=== PATIENT | male | born 1950 | race Caucasian/White ===

== ENCOUNTER → 2019-11-19 | Outpatient (CLI) | payer MEDICARE, OTHER ==
[~2019-11-19] MED LIST: MEDICAL MARIJUANA; OMEP20ER PO
== END | disposition home or self-care (01) ==
LOC: LAB 10:55 → LAB SHORT 10:55
DX: L08.0 Pyoderma (principal)
CPT/HCPCS: 87070; 87077; 87186; 87205

== ENCOUNTER → 2020-01-07 | Outpatient (CLI) | payer MEDICARE, OTHER | LOC: PLD 07:49 → LAB SHORT 07:49 | DX: L30.8 Other specified dermatitis (principal); L08.9 Local infection of the skin and subcutaneous tissue, unspecified | CPT/HCPCS: 88305; 88312 ==

== ENCOUNTER → 2020-02-11 | Outpatient (CLI) | payer MEDICARE, OTHER | END | disposition home or self-care (01) | LOC: LAB SHORT 15:52 → PLD 15:52 | DX: L30.8 Other specified dermatitis (principal) | CPT/HCPCS: 88305; 88312 ==

== ENCOUNTER 2020-07-21 07:34 | Day surgery (SDC) | payer MEDICARE, OTHER ==
[~2020-07-21 07:34] MED LIST changes: +FAMO20 PO; +FOLI1; +METTREX2.5 PO
--- NOTE | 2020-07-21 07:58 | NUR ---
07/21/20 0758 Sekou Rosenbaum History, Chart, Medications and Allergies reviewed before start of procedure. MONITOR INTACT WITH CONTINUOUS PULSE OXIMETRY AND INTERMITTENT BP. 3-LEAD EKG REVIEWED WITH PHYSICIAN PRIOR TO START OF PROCEDURE. O2 VIA N/C INTACT THROUGHOUT SEDATION/PROCEDURE. PATIENT DETERMINED TO BE ASA APPROPRIATE FOR PROPOFOL SEDATION PRIOR TO START OF PROCEDURE BY DR. PÉREZ.
--- NOTE | 2020-07-21 08:59 | NUR ---
Patient up to Ambulate independently. Gait steady. Discharge instructions reviewed with patient. Patient verbalizes understanding. Copy given to patient to take home. Patient States Post-Procedure ride home has been arranged. Discharged via wheelchair to private car for ride home. ALL BELONINGS RETURNED TO PATIENT. PLACED PICS, PAMPHLETS IN PACKAGE. PROVIDED EDUCATION ON HIGH FIBER DIET.
== END 2020-07-21 09:05 | disposition home or self-care (01) ==
LOC: ORSCMMR 07:34 → ORD 08:00 → ORSCMMR 09:05
PROVIDERS: Internal Medicine Gastroenterology
PROC: 0DBN8ZX Excision of Sigmoid Colon, Via Natural or Artificial Opening Endoscopic, Diagnostic (ICD-10-PCS; principal; 2020-07-21 08:00)
PROC: 0DBK8ZX Excision of Ascending Colon, Via Natural or Artificial Opening Endoscopic, Diagnostic (ICD-10-PCS; principal; 2020-07-21 08:00)
PROC: 0DBM8ZX Excision of Descending Colon, Via Natural or Artificial Opening Endoscopic, Diagnostic (ICD-10-PCS; principal; 2020-07-21 08:00)
PROC: 0DBL8ZX Excision of Transverse Colon, Via Natural or Artificial Opening Endoscopic, Diagnostic (ICD-10-PCS; principal; 2020-07-21 08:00)
DX: Z12.11 Encounter for screening for malignant neoplasm of colon (principal); Z86.010 Personal history of colon polyps; K63.5 Polyp of colon; D12.2 Benign neoplasm of ascending colon; D12.3 Benign neoplasm of transverse colon; D12.4 Benign neoplasm of descending colon; K57.30 Diverticulosis of large intestine without perforation or abscess without bleeding; K21.9 Gastro-esophageal reflux disease without esophagitis; F17.210 Nicotine dependence, cigarettes, uncomplicated; Z79.899 Other long term (current) drug therapy
CPT/HCPCS: 88305; J2704; J7120

== ENCOUNTER → 2022-01-10 | Outpatient (CLI) | payer MEDICARE | END | disposition home or self-care (01) | LOC: PLD 11:18 → LAB SHORT 11:18 | DX: L98.9 Disorder of the skin and subcutaneous tissue, unspecified (principal) | CPT/HCPCS: 88305 ==

== ENCOUNTER → 2022-05-09 | Outpatient (CLI) | payer MEDICARE | END | disposition home or self-care (01) | LOC: LAB SHORT 14:35 → LAB 14:35 → PLD 14:35 | DX: L98.8 Other specified disorders of the skin and subcutaneous tissue (principal); R23.4 Changes in skin texture; R60.0 Localized edema | CPT/HCPCS: 88305; 88312 ==

== ENCOUNTER 2022-07-06 07:40 | Day surgery (SDC) | payer MEDICARE ==
[2022-07-06] VITALS (15 sets, daily range): BP systolic 95–155; BP diastolic 67–104
[~2022-07-06] VITALS: Ht 177.8 cm; Wt 77.0 kg
[~2022-07-06 07:40] MED LIST changes: +PANT40 PO
[2022-07-06] MEDS ORDERED: ACET500 (08:38)
--- NOTE | 2022-07-06 08:42 | NUR ---
Ambulatory in Day Surgery History, Chart, Medications and Allergies reviewed before start of procedure. Pre-Op teaching done. Pt verbalizes understanding. Patient States Post-Procedure ride home has been arranged.
--- NOTE | 2022-07-06 09:09 | NUR ---
07/06/22 0909 Cristina Casanova HISTORY, CHART, MEDICATIONS AND ALLERGIES REVIEWED BEFORE START OF PROCEDURE. PATIENT CONFIRMS NPO STATUS AND AGREES WITH SCHEDULED PROCEDURE. 3-LEAD EKG REVIEWED WITH PHYSICIAN PRIOR TO START OF PROCEDURE. MONITOR INTACT WITH CONTINUOUS PULSE OXIMETRY,CAPNOGRAPHY, 3-LEAD EKG, INTERMITTENT BP. SUPPLEMENTAL O2 TO BE TITRATED THROUGHOUT PROCEDURE TO MAINTAIN O2 SATURATION ABOVE 90%. PATIENT DETERMINED TO BE ASA APPROPRIATE FOR PROPOFOL SEDATION PRIOR TO START OF PROCEDURE BY DR. PÉREZ.
--- NOTE | 2022-07-06 10:09 | NUR ---
DISCHARGE NOTE PT A&OX4, VSS, BREATHING RA, NO COMPLAINTS OF PAIN OR NAUSEA. ABDOMEN SOFT. TOLERATING PO FLUIDS. Discharge instructions reviewed with patient. Patient verbalizes understanding. Copy given to patient to take home. Discharged via wheelchair to private car for ride home. PT DISCHARGED WITH ALL BELONGINGS.
== END 2022-07-06 10:15 | disposition home or self-care (01) ==
LOC: ORSCMMR 07:40 → ORD 08:30 → ORSCMMR 08:30
PROVIDERS: Internal Medicine Gastroenterology
PROC: 0DB58ZX Excision of Esophagus, Via Natural or Artificial Opening Endoscopic, Diagnostic (ICD-10-PCS; principal; 2022-07-06 08:30)
PROC: 0DB98ZX Excision of Duodenum, Via Natural or Artificial Opening Endoscopic, Diagnostic (ICD-10-PCS; principal; 2022-07-06 08:30)
PROC: 0DB48ZX Excision of Esophagogastric Junction, Via Natural or Artificial Opening Endoscopic, Diagnostic (ICD-10-PCS; principal; 2022-07-06 08:30)
PROC: 0DB68ZX Excision of Stomach, Via Natural or Artificial Opening Endoscopic, Diagnostic (ICD-10-PCS; principal; 2022-07-06 08:30)
DX: K21.9 Gastro-esophageal reflux disease without esophagitis (principal); R21 Rash and other nonspecific skin eruption; B96.81 Helicobacter pylori [H. pylori] as the cause of diseases classified elsewhere; Z86.010 Personal history of colon polyps; F17.210 Nicotine dependence, cigarettes, uncomplicated; Z79.899 Other long term (current) drug therapy
CPT/HCPCS: 88305; 88342; A9270; J2704; J7120

== ENCOUNTER 2023-03-09 11:24 | Day surgery (SDC) | payer MEDICARE ==
[~2023-03-09] VITALS: Ht 177.8 cm; Wt 76.5 kg
[~2023-03-09 11:24] MED LIST changes: +ACET500; +MOBIC15 MG PO; +MOME.1TO TOP; +UREA226.8 GM TOP; +XALATAN2.5 ML
--- NOTE | 2023-03-09 13:04 | NUR ---
03/09/23 1304 Clementine Do T:[id number] P:[id number]
[2023-03-09 13:36] VITALS: BP 125/76
--- NOTE | 2023-03-09 13:59 | NUR ---
03/09/23 1359 Donovan Fofana IV REMOVED INTACT. SITE WNL.
== END 2023-03-09 13:55 | disposition home or self-care (01) ==
LOC: ORSCSDS 11:24
PROVIDERS: Ophthalmology
PROC: 08933ZZ Drainage of Left Anterior Chamber, Percutaneous Approach (ICD-10-PCS; principal; 2023-03-09 12:30)
PROC: 08RK3JZ Replacement of Left Lens with Synthetic Substitute, Percutaneous Approach (ICD-10-PCS; principal; 2023-03-09 12:30)
DX: H25.12 Age-related nuclear cataract, left eye (principal); J44.9 Chronic obstructive pulmonary disease, unspecified; K21.9 Gastro-esophageal reflux disease without esophagitis; F17.210 Nicotine dependence, cigarettes, uncomplicated; G35 Multiple sclerosis; H40.1132 Primary open-angle glaucoma, bilateral, moderate stage; Z79.899 Other long term (current) drug therapy
CPT/HCPCS: 82947; J2250; J3010; J3301; J7040; V2632

== ENCOUNTER 2023-03-16 11:13 | Day surgery (SDC) | payer MEDICARE ==
[~2023-03-16] VITALS: Ht 177.8 cm; Wt 75.0 kg
[2023-03-16] MEDS ORDERED: TAMS.4ER (12:23)
[2023-03-16] MEDS ORDERED: [UNRECOGNIZED DRUG - OTHER] (12:24)
[2023-03-16 13:36] VITALS: BP 105/68
--- NOTE | 2023-03-16 14:02 | NUR ---
03/16/23 3372 JANNET CARBAJAL PT REQUESTED A ROLL OF PAPER TAPE. HE STATES THAT HE HAD A REACTION TO THE TAPE LAST TIME. HE STATED THAT HE ONLY HAD IT IN ONE SPOT- THEN HE RUBBED IT. I DO NOT BRUISING ON THE RIGHT SIDE OF HIS NOSE. PAPER TAPE GIVEN TO HIM HE REQUESTED.
== END 2023-03-16 14:05 | disposition home or self-care (01) ==
LOC: ORSCSDS 11:13
PROVIDERS: Ophthalmology
PROC: 08923ZZ Drainage of Right Anterior Chamber, Percutaneous Approach (ICD-10-PCS; principal; 2023-03-16 12:30)
PROC: 08RJ3JZ Replacement of Right Lens with Synthetic Substitute, Percutaneous Approach (ICD-10-PCS; principal; 2023-03-16 12:30)
DX: E11.36 Type 2 diabetes mellitus with diabetic cataract (principal); H25.11 Age-related nuclear cataract, right eye; H40.1132 Primary open-angle glaucoma, bilateral, moderate stage; H35.3290 Exudative age-related macular degeneration, unspecified eye, stage unspecified; Z96.1 Presence of intraocular lens; G35 Multiple sclerosis; K21.9 Gastro-esophageal reflux disease without esophagitis; Z79.899 Other long term (current) drug therapy; F17.210 Nicotine dependence, cigarettes, uncomplicated
CPT/HCPCS: J2250; J3010; J3301; J7040; V2632

== ENCOUNTER → 2024-08-08 | Outpatient (CLI) | payer MEDICARE ==
[~2024-08-08] MED LIST changes: +TAMS.4ER; +[UNRECOGNIZED DRUG - OTHER]
== END ==
LOC: LAB 15:40 → LAB SHORT 15:40
DX: L02.32 Furuncle of buttock (principal)
CPT/HCPCS: 87070; 87075; 87205